=== PATIENT | male | born 1990 | race Hispanic/Latino ===

== ENCOUNTER 2018-06-16 09:12 | Observation (INO) | payer OTHER ==
[~2018-06-16] VITALS: Ht 175.3 cm; Wt 95.5 kg
[2018-06-16] VITALS (29 sets, daily range): BP systolic 104–132; BP diastolic 50–79
[2018-06-16] MEDS ORDERED: SODIUM CHLORIDE 0.9% 1000ML 1,000 ML IV ONE (09:38)
[2018-06-16] MEDS ORDERED: ACETAMINOPHEN EXTRA STRENGTH 500 MG TABLET ONE (09:39)
[2018-06-16 10:02] LABS: BASOPHILS % (AUTO) 0.3 % (0.0-5.0); EOSINOPHILS % (AUTO) 0.2 % (0.0-8.0); HEMATOCRIT 44.5 % (42-54); LYMPHOCYTES % (AUTO) 11.4 % (21.0-51.0); MEAN CORPUSCULAR VOLUME 87.8 fL (79-99); MONOCYTES % (AUTO) 8.9 % (3.0-13.0); NEUTROPHILS % (AUTO) 79.2 % (40.0-77.0); NUCLEATED RED BLOOD CELLS 0.1 % (0.0-0.19); PLATELET COUNT (AUTO) 219 K/uL (130-400); RED BLOOD CELL COUNT(AUTO) 5.07 MIL/uL (4.50-6.20); RED CELL DISTRIBUTION WIDTH 12.7 % (11.0-15.5); WHITE BLOOD COUNT (AUTO) 15.3 K/uL (4.8-10.8)
[2018-06-16 10:24] LABS: ALBUMIN 4.2 g/dL (3.5-5.0); BILIRUBIN,TOTAL 0.8 mg/dL (0.2-1.0); POTASSIUM 3.5 mmol/L (3.5-5.1); TOTAL PROTEIN, SERUM 8.6 g/dL (6.0-8.3)
[2018-06-16 10:34] LABS: APPEARANCE,URINE Clear (CLEAR); BILIRUBIN,URINE Negative (NEGATIVE); COLOR,URINE Yellow (YELLOW); GLUCOSE, URINE (UA) Negative (NEGATIVE); KETONES,URINE Negative (NEGATIVE); LEUKOCYTE ESTERASE ,URINE Negative (NEGATIVE); NITRATE,URINE Negative (NEGATIVE); OCCULT BLOOD,URINE Negative (NEGATIVE); PROTEIN,URINE Negative (NEGATIVE)
[2018-06-16 10:52] LABS: CREATININE 1.1 mg/dL (0.5-1.5)
[2018-06-16] MEDS ORDERED: SODIUM CHLORIDE 0.9% 100 ML IV ONE (12:02)
[2018-06-16] MEDS ORDERED: CEFOXITIN SODIUM 2 GM VIAL ONE (12:02)
[2018-06-16] MEDS ORDERED: PROPOFOL 10 MG/ML 20ML VIAL IV ONE ×3 (12:26→12:45)
[2018-06-16] MEDS ORDERED: LIDOCAINE PF 2% 5ML ABBOJECT ONE (12:41)
[2018-06-16] MEDS ORDERED: ONDANSETRON HCL 4 MG/2 ML VIAL ONE (12:41)
[2018-06-16] MEDS ORDERED: KETOROLAC TROMETHAMINE 30MG/ML ONE (12:41)
[2018-06-16] MEDS ORDERED: FENTANYL CITRATE PF 50 MCG/1 ML 2ML VIAL ONE (12:42)
[2018-06-16] MEDS ORDERED: ROCURONIUM 10MG/1ML SYR 10 MG/ML ML ONE (12:44)
[2018-06-16] MEDS: LACTATED RINGERS 1000ML 1,000 ML IV SCH ×2 (13:25→16:31)
[2018-06-16] MEDS ORDERED: ACETAMINOPHEN 325 MG TAB PO PRN (13:30)
[2018-06-16] MEDS ORDERED: ONDANSETRON HCL 4 MG/2 ML VIAL IVP PRN (13:30)
[2018-06-16] MEDS ORDERED: MORPHINE SULFATE 2 MG/ML 1ML SYG IV PRN (13:30)
[2018-06-16] MEDS ORDERED: MEPERIDINE-PF 25 MG/ML SYG ONE ×2 (13:35→13:46)
[2018-06-16] MEDS ORDERED: HYDROMORPHONE 1 MG/1 ML AMP ONE (14:19)
[2018-06-16] MEDS: ACETAMINOPHEN-CODEINE 300/30MG TAB PO PRN ×2 (16:29→23:37)
[2018-06-16] MEDS: CEFOXITIN SODIUM 1 GM VIAL IVP SCH (20:33)
[2018-06-17] VITALS: BP 108/62
[2018-06-17] MEDS: CEFOXITIN SODIUM 1 GM VIAL IVP SCH ×2 (01:51→06:37)
[2018-06-17] MEDS: LACTATED RINGERS 1000ML 1,000 ML IV SCH ×2 (02:38→15:56)
[2018-06-17 04:00] VITALS: BP 104/58
[2018-06-17 08:24] VITALS: BP 116/63
[2018-06-17] MEDS ORDERED: TYL3 PO (10:50)
[2018-06-17 12:44] VITALS: BP 116/60
== END 2018-06-17 19:00 | disposition home or self-care (01) ==
LOC: EDH 09:12 → EDHIP 11:56 → 3BH 15:04
PROVIDERS: ADMIT Surgery; ATTEND Surgery
DX: K35.80 Unspecified acute appendicitis (principal); Z96.619 Presence of unspecified artificial shoulder joint
CPT/HCPCS: 36415; 44950; 74176; 80053; 81003; 85025; 88304; 96374; 96376; 99285; A4218 ×3; A4450; A4452; A4600; G0378 ×31; J0694 ×5; J1170; J1885; J2001; J2175 ×2; J2405; J2704 ×3; J3010; J7030; J7120 ×3